=== PATIENT | female | born 1980 | race Caucasian/White ===

== ENCOUNTER 2025-02-16 17:27 | Emergency (ER) | payer SELFPAY ==
[2025-02-16 17:29] VITALS: BP 183/118
--- NOTE | 2025-02-16 18:57 | ED.MUSCINJ ---
HPI-Injury
General
Chief Complaint: Musculo-Skeletal Complaint
Source: patient
Time Seen by Provider: 02/16/25 18:39
History of Present Illness-Injury
Initial Injury comments:
44-year-old female presents complaining of worsening pain to the right arm that starts at the posterior aspect of the neck and radiates down the posterior arm down to the forearm. She notes numbness and tingling to the index and middle fingers to
the right hand. She states she feels like she is dropping things. The pain is a constant dull ache in nature. She tried [id number] medications without relief. No bowel or bladder dysfunction. No fever. No known injury but she states she
thinks she overdid her exercise routine this year. No other complaints at this time
Phy Exam
Physical Exam
Physical Exam:
General: Well-appearing female no acute respiratory distress
HEENT: Normal cephalic atraumatic
Heart: Regular rate and rhythm
Lungs: Clear no wheeze
Musculoskeletal exam: There is tenderness over the inferior portion of the right side of the cervical spine. Good range of motion all extremities
Neurologic exam: Good strength in the upper extremities bilaterally. Bilateral reflexes intact.
Vascular 2+ radial pulse bilaterally
Injury Course
Orders/Labs/Results
Orders:
Orders
02/16/25 18:54
CR Cervical Spine 2 or 3 Vw Urgent
Comment:
Reason For Exam: neck pain
02/16/25 20:32
Ketorolac [Toradol] 60 mg IM NOW STA
MDM/Problems Addressed
Differential Diagnosis Includes:
Right arm pain with neck pain. Symptoms most consistent with radiculopathy. No weakness on exam. No fever to suggest infectious source. No red flags to suggest cauda equina. X-rays and cervical spine pending
*Pulse Oximetry
SaO2: 99
Oxygen Mode of Delivery: Room air
Patient hypoxic: no
*Critical Care Note
Total Time (30-74mins, 75-104mins- exclusive of procedures): Not Applicable
Update Note
Update Note:
X-ray shows degenerative change throughout the lower cervical spine. This may correlate with the patient's location of her radiculopathy. Will prescribe prednisone and gabapentin for her. Stable for discharge
ED Attending Note
-
Portions of this chart may have been created with voice recognition software.� Occasional wrong word or��sound alike� substitutions may have occurred due to the inherent limitations of voice recognition software.
Discharge Plan
Departure
Patient Disposition: Home (Routine Discharge)
Date of Disposition: 02/16/25
Time of Disposition: 22:10
Patient with high blood pressure during this ER visit?: No
Discharge Problem:
Cervical radiculopathy
Instructions: Radiculopathy of the neck and back (including sciatica)
Prescriptions:
New
gabapentin 300 mg capsule
300 mg PO BID Qty: 14 0RF
prednisone 10 mg Tablet
See Rx Instructions .ROUTE .COMPLEX Qty: 30 0RF
Rx Instructions:
Take By Mouth:
40 mg daily x3 days, 30 mg daily x3 days,
20 mg daily x3 days, 10 mg daily x3 days.
Referrals:
Ty Burnett MD [Family Provider, Family Practice]
Shlomo Orourke MD [Active, Orthopedics]
Activity Restrictions/Additional Instructions:
Use prednisone and gabapentin as directed. Use warm compresses to the area. Follow-up with back and neck pain specialist. Return if needed otherwise
Interventions
Interventions:
*Risk Screen - Suicide Last Done: 02/16/25 17:29
*General Assessment Last Done: 02/16/25 20:11
*Neglect/Abuse Screening Last Done: 02/16/25 17:29
*ED COVID-19 Vaccine History Last Done: 02/16/25 20:11
*ED Influenza Vaccine History Last Done: 02/16/25 20:11
[facility] Fall Risk Assessment Tool Last Done: 02/16/25 20:11
ED-Musculoskeletal Assessment Last Done: 02/16/25 20:12
Discharge Date and Time
Print Language: [id number]
[2025-02-16] MEDS: TORADOL 60 MG IM (20:34)
[2025-02-16 22:33] VITALS: BP 158/83
== END 2025-02-16 22:00 | disposition home or self-care (01) ==
LOC: EMR 17:27
PROVIDERS: EMERGENCY PHYSICIAN Student in an Organized Health Care Education/Training Program; FAMILY PHYSICIAN Family Medicine
DX: M54.12 Radiculopathy, cervical region (principal)
CPT/HCPCS: 96372; 99284; 72040